=== PATIENT | male | born 1950 | race Caucasian/White ===

== ENCOUNTER 2019-01-11 09:20 | Outpatient (CLI) | payer BC, MEDICARE, OTHER ==
[~2019-01-11 09:20] MED LIST: Iopamidol 370 76% 100 ML VIAL ONE
--- NOTE | 2019-01-11 10:25 | CT ---
CT abdomen and pelvis with and without IV contrast. Oral contrast was not administered. Postcontrast images were obtained in the portal venous phase and delayed venous phase. INDICATIONS: Prostate cancer COMPARISON: None FINDINGS: Lung bases are clear Liver, spleen, and pancreas appear unremarkable. Stomach and duodenum appear unremarkable. Adrenal glands appear normal. Review of the noncontrast images reveal no evidence of urinary tract calculus. No hydronephrosis. Postcontrast images show no evidence of renal mass. There is equal function and enhancement bilateral ly. Urinary bladder mildly distended. Mild urinary bladder wall thickening. Prostate is enlarged. The prostate indents the floor the bladder. Collecting structures opacify and appear unremarkable on the delayed venous phase. Small bowel loops are normal caliber and exhibit normal fold pattern. Appendix is identified and appears unremarkable. Colon is unremarkable. Aorta is calcified. Aorta is normal caliber. No evidence of retroperitoneal or mesenteric adenopathy. No evidence of pelvic adenopathy. Subcutaneous tissues, abdominal wall, and muscular structures appear unremarkable. Osseous structures appear unremarkable. IMPRESSION: Prostatic hypertrophy. Mild urinary bladder wall thickening. No acute process.
== END 2019-01-11 09:21 | disposition home or self-care (01) ==
LOC: SCSCT 09:20
PROVIDERS: ATTEND Urology
DX: C43.9 Malignant melanoma of skin, unspecified (principal); C61 Malignant neoplasm of prostate; R97.20 Elevated prostate specific antigen [PSA]; N40.1 Benign prostatic hyperplasia with lower urinary tract symptoms; N40.2 Nodular prostate without lower urinary tract symptoms; N32.89 Other specified disorders of bladder
CPT/HCPCS: 74178; 81001; 82565; 87086; Q9967

== ENCOUNTER 2019-02-06 14:49 | Outpatient (CLI) | payer BC, MEDICARE, OTHER ==
[~2019-02-06 14:49] MED LIST changes: +Gadobenate Dimeglumine 529 MG/1 ML (20ML VIAL) ONE; -Iopamidol 370 76% 100 ML VIAL ONE
--- NOTE | 2019-02-06 16:38 | MRI ---
MRI Pelvis W WO Con History: Elevated PSA Comparison: None. Findings: Exam was reviewed at an independent 3-D workstation. Prostate: Prostate measures 5.3 x 4.5 x 4.9 cm for a volume of 61 mL. Peripheral zone: In the right peripheral zone apex from 7:00 - 8:00 is a focal area of markedly hyper intense signal on DWI and focal markedly hypointense signal on ADC map measuring 1.1 x 0.9 x 1.5 cm. There is capsular bulge and high likelihood of neurovascular bundle invasion. Prostatic capsule: Extra prostatic extension at 7:00-8:00 near the apex. Neurovascular bundle: High likelihood of invasion. Lymph nodes: No focal adenopathy. Small right external iliac lymph nodes retain normal fatty hilum. Urinary bladder: Not involved. Seminal vesicles: There is some layering debris within seminal vesicles. No malignant involvement. Bones: On the large [id number] T1 sequence there are no areas of loss of marrow signal to suggest osseous metastatic disease. Intrapelvic soft tissues: Normal Impression: 1. Prostatic volume of 61 mL. 2 PIRADS 5: Very high (clinically significant cancer highly likely) . There is capsular bulge with ex traprostatic extension along with neurovascular bundle invasion. This occurs at the right apex peripheral zone from 7:00 - 8:00. 3. No evidence for jey or osseous metastatic disease.
== END 2019-02-06 14:50 | disposition home or self-care (01) ==
LOC: TBSIIMAG 14:49
PROVIDERS: ATTEND Urology
DX: C43.9 Malignant melanoma of skin, unspecified (principal); R97.20 Elevated prostate specific antigen [PSA]; N42.9 Disorder of prostate, unspecified
CPT/HCPCS: 72197; 82565

== ENCOUNTER 2019-03-10 11:36 | Outpatient (CLI) | payer BC, MEDICARE, OTHER ==
--- NOTE | 2019-03-10 12:50 | RAD ---
PA AND LATERAL VIEWS CHEST: Date: 03/10/19 HISTORY: Preoperative evaluation. FINDINGS: The heart size is normal. The aorta is tortuous. The lungs are expanded without focal areas of consol idation, pneumothoraces, or pleural effusions. No acute osseous abnormalities are seen. IMPRESSION: No acute process. POS: ALINE
[2019-03-10 13:12] LABS: Hemoglobin 13.4 g/dL (14.0-18.0); Mean Corpuscular HGB CONC 31.7 g/dL (32.0-36.0); Mean Corpuscular Hemoglobin 27.5 pg (27.0-31.0); Mean Corpuscular Volume 86.7 fL (78.0-98.0); Platelet Count 155 thou/uL (130-400); RBC Distribution Width 12.5 % (11.5-14.5); Red Blood Cell (RBC) Count 4.86 mill/uL (4.70-6.10); White Blood Cell (WBC) Count 7.2 thou/uL (4.8-10.8)
[2019-03-10 13:20] LABS: INR-International Normal Ratio 0.9; Prothrombin Time 12.6 SEC (12.0-14.7)
[2019-03-10 13:32] LABS: Anion Gap 12 mmol/L (10-20); BUN (Urea Nitrogen) 27 mg/dL (8.4-25.7); Calc. Creatinine Clearance 0 mL/min (70-130); Carbon Dioxide 23 mmol/L (23-31); Chloride 109 mmol/L (98-107); Estimated GFR-MDRD 72; Glucose 82 mg/dL (80-115); Potassium 4.3 mmol/L (3.5-5.1); Sodium 140 mmol/L (136-145)
[2019-03-10 14:01] LABS: Bacteria/HPF None Seen HPF (None Seen); Bilirubin Negative (Negative); Blood, Urine Negative (Negative); Clarity Extra Turbid (Clear); Glucose, Urine (Dipstick) Normal (Negative); Leukocyte Negative Leu/uL (Negative); Mucous/LPF Rare LPF (<2+); Nitrite Negative (Negative); Protein, Urine (Dipstick) 30 mg/dL (Neg-Trace); Squamous Epithelial 0-3 HPF (0-3); Urobilinogen Normal mg/dL (Less than 2)
--- NOTE | 2019-03-13 16:50 | EKG ---
Test Reason : Blood Pressure : / mmHG Vent. Rate : 052 BPM Atrial Rate : 052 BPM P-R Int : 144 ms QRS Dur : 102 ms QT Int : 438 ms P-R-T Axes : 051 011 021 degrees QTc Int : 407 ms Sinus bradycardia Otherwise normal ECG Confirmed by NATALIYA YOUNG ([id number]) on 03/13/2019 4:50:29 PM Referred By: DEMI Confirmed By:NATALIYA YOUNG
== END 2019-03-10 11:37 | disposition home or self-care (01) ==
LOC: LABBT 11:36
PROVIDERS: ATTEND Urology
DX: Z01.818 Encounter for other preprocedural examination (principal); C61 Malignant neoplasm of prostate; C43.9 Malignant melanoma of skin, unspecified; N40.1 Benign prostatic hyperplasia with lower urinary tract symptoms; R97.20 Elevated prostate specific antigen [PSA]; I10 Essential (primary) hypertension; I25.810 Atherosclerosis of coronary artery bypass graft(s) without angina pectoris; K42.9 Umbilical hernia without obstruction or gangrene; N35.816 Other urethral stricture, male, overlapping sites
CPT/HCPCS: 71046; 80048; 81001; 85027; 85610; 85730; 87081; 87086; 93005; 93010

== ENCOUNTER 2019-03-22 06:01 | Day surgery (SDC) | payer BC, MEDICARE, OTHER ==
[2019-03-10 12:05] VITALS: BMI 31.5
[2019-03-22] MEDS ORDERED: Sodium Chloride 0.9% 100 ML ONE (06:28)
[2019-03-22] MEDS ORDERED: Levofloxacin 500 mg/D5W 100 ml Premix Bag ONE (06:28)
[2019-03-22] MEDS ORDERED: cefTRIAXone\\ROCEPHIN 2 GM VIAL ONE (06:28)
[2019-03-22] MEDS ORDERED: Fentanyl 100 MCG/2 ML VIAL ONE (07:04)
[2019-03-22] MEDS ORDERED: Phenazopyridine HCl 97.5 MG TABLET ONE (08:58)
[2019-03-22] MEDS ORDERED: Oxybutynin 5 MG TAB ONE (08:58)
--- NOTE | 2019-03-22 12:10 | OP ---
DATE OF PROCEDURE: 03/22/2019 PREOPERATIVE DIAGNOSES: 1. A 68-year-old male with clinical T1c, [place] score 3 + 3, 1/12 core positive prostate cancer with low-risk genomic testing. 2. Recent MRI demonstrating PI-RADS 5 lesion. 3. History of urethral stricture, status post dilatation. POSTOPERATIVE DIAGNOSES: 1. A 68-year-old male with clinical T1c, [place] score 3 + 3, 1/12 core positive prostate cancer with low-risk genomic testing. 2. Recent MRI demonstrating PI-RADS 5 lesion. 3. History of urethral stricture, status post dilatation. PROCEDURES PERFORMED: Flexible cystoscopy, 16-Cypriot 10 mL Cruz catheter placement, transrectal ultrasound volume study, standard 12 core plus extended core of fusion biopsy of region of interest x4. ANESTHESIA: LMA. COMPLICATIONS: None apparent. ESTIMATED BLOOD LOSS: Minimal. IV FLUIDS: 800 mL. SPECIMEN: Standard 12-core prostate biopsy, transrectal ultrasound of the prostate volume study, region of interest with 4 specimens obtained, MRI fusion biopsy INTRAOPERATIVE FINDINGS: 1. Flexible cystoscopy demonstrates moderately obstructing bilobar hyperplasia of the prostate as previous. 2. Resolution of his urethral stricture dilated in office on February 16. 3. Prostate volume study, 65 g. INDICATIONS FOR PROCEDURE AND HISTORY: Mr. El is a 68-year-old pleasant male, who was referred to me for elevated PSA. His HOWARD is grossly unremarkable and remains negative. He presented with a PSA of 7.01, it has decreased to 6.6. He underwent prostate biopsy demonstrating [place] score 3 + 3, 1/12 cores positive. Genetic Oncotype testing demonstrated GPS score of 26 and very low risk and therefore we were considering active surveillance. I did obtain a 3T-MRI for staging, which unfortunately demonstrated contradictory findings of PI-RADS 5 with extracapsular bulge, and likelihood of neurovascular invasion of the right peripheral apex with no focal lymphadenopathy. Due to conflicting results of genomics, an MRI staging, we discussed in long detail regarding proceeding with treatment versus restaging MRI fusion biopsy to obtain more specimen. He was seen by Radiation Oncology, who recommended fusion biopsy of the region of interest and he desired to proceed. Risks and complications of the procedure were reviewed with him in detail again including, but not limited to, bleeding, pain, infection, injury to adjacent organs, urosepsis, and clot retention. All questions were answered to his satisfaction. He desired to proceed. DESCRIPTION OF PROCEDURE: After an informed consent was signed, the patient was taken to the operating room, placed in a supine position. Broad-spectrum antibiotics were provided with bilateral EDER davide SCDs in place. A flexible cystoscopy was performed for staging, which demonstrated resolution of his previous urethral stricture. He did not require to be debilitated again and bilobar hyperplasia moderately obstructing again noted. Bladder was grossly unremarkable and I did pass a 16-Cypriot 10 mL Cruz catheter without significant issues and this was that attached to leg bag, gravity bag. We then placed the patient in a lateral decubitus position with all pressure points padded and protected at all times. We did perform a transrectal ultrasound volume study with a probe demonstrating 65 g prostate: Urethral length of 5.5, width of 5.4, height of 4.15. After volume assessment was then performed, we then used the MRI image to our ultrasound. Region of interest was aligned and we performed 4 targeted biopsies of the region of interest uneventfully. Subsequently, we performed our 12 standard core biopsy in a usual matter. He tolerated the procedure well and transported to the recovery room in stable condition. He will follow up with me next Wednesday to review pathology. He is discharged with ciprofloxacin for 7 days. Job ID: [id number] [facility]
== END 2019-03-22 10:49 | disposition home or self-care (01) ==
LOC: SDC 06:01
PROVIDERS: ATTEND Urology
PROC: 0T9B80Z Drainage of Bladder with Drainage Device, Via Natural or Artificial Opening Endoscopic (ICD-10-PCS; principal; 2019-03-22)
PROC: 0VB03ZX Excision of Prostate, Percutaneous Approach, Diagnostic (ICD-10-PCS; principal; 2019-03-22)
DX: N41.1 Chronic prostatitis (principal); N40.1 Benign prostatic hyperplasia with lower urinary tract symptoms; R35.0 Frequency of micturition; R35.1 Nocturia; E78.5 Hyperlipidemia, unspecified; I10 Essential (primary) hypertension; I25.10 Atherosclerotic heart disease of native coronary artery without angina pectoris; Z87.891 Personal history of nicotine dependence; Z79.899 Other long term (current) drug therapy
CPT/HCPCS: 88305; J0131; J0696; J1956; J3010; J3490

== ENCOUNTER 2019-05-31 08:55 | Outpatient (CLI) | payer BC, MEDICARE, OTHER ==
--- NOTE | 2019-05-31 12:13 | MRI ---
MRI OF PROSTATE WITHOUT AND WITH CONTRAST: Date: 05/31/19 COMPARISON: 02/06/19. HISTORY: Prostate cancer. Patient had a previous positive prostate biopsy followed by a negative pro state biopsy. TECHNIQUE: Multiplanar, multisequence MR images were obtained of the prostate without and with IV co ntrast. FINDINGS: There is moderate hypertrophy of the central gland consistent with BPH. There is a 9 mm area of low T 2 signal in the apex of the posterior prostate. This is stable to slightly smaller than on the prior examination. This area does not demonstrate restricted diffusion or low ADC signal. This lesion is mo st likely within the peripheral zone of the prostate. No other low T2 suspicious lesions are seen within the prostate. No restricted diffusion in the perip heral zone of prostate or low signal on ADC map in peripheral zone pf prostate seen. The neurovascular bundles appear intact. The seminal vesicles are intact. No pelvic adenopathy is see n. No marrow signal abnormality is present. IMPRESSION: There is a 9 mm focus of low T2 signal on the right prostate peripheral zone near the apex. This is s table in size. This does not demonstrate restricted diffusion or low signal on the ADC map. Therefore , this likely would not be of clinically significant cancer. PI-RADS Category 2 - Low likelihood that a clinically significant cancer is present. POS: RANGEL
== END 2019-05-31 08:56 | disposition home or self-care (01) ==
LOC: TBSIIMAG 08:55
PROVIDERS: ATTEND Urology
DX: C61 Malignant neoplasm of prostate (principal)
CPT/HCPCS: 72197; 82565

== ENCOUNTER 2020-07-26 13:28 | Outpatient (CLI) | payer MEDICARE, BC, OTHER ==
[2020-07-26 14:19] LABS: Hemoglobin 13.9 g/dL (14.0-18.0); Mean Corpuscular HGB CONC 32.3 G/DL (32.0-36.0); Mean Corpuscular Hemoglobin 27.6 PG (27.0-33.0); Mean Corpuscular Volume 85.3 fl (80.0-100.0); Mean Platelet Volume 11.2 fl (7.4-10.4); Platelet Count 154 10x3/uL (130-400); RBC Distribution Width 13.9 % (11.5-14.5); Red Blood Cell (RBC) Count 5.04 10x6/uL (4.40-5.80); White Blood Cell (WBC) Count 6.5 10x3/uL (4.5-11.0)
--- NOTE | 2020-07-26 14:31 | RAD ---
EXAM: Chest 2 views: HISTORY: Preoperative radiograph COMPARISON: 03/10/2019 FINDINGS: There is a normal-sized cardiomediastinal silhouette. There is no evidence of consolidation, mass, or pleural effusion. Degenerative changes are seen in the spine. IMPRESSION: No evidence of acute cardiopulmonary disease
[2020-07-26 14:40] LABS: Prothrombin Time 10.6 sec (9.5-12.1)
[2020-07-26 15:14] LABS: Anion Gap 15 mmol/L (10-20); BUN (Urea Nitrogen) 21 mg/dL (8.4-25.7); Calc. Creatinine Clearance 0 mL/min (70-130); Calcium 8.6 mg/dL (7.8-10.44); Carbon Dioxide 22 mmol/L (23-31); Chloride 109 mmol/L (98-107); Estimated GFR-MDRD 65; Glucose 102 mg/dL (80-115); Potassium 4.3 mmol/L (3.5-5.1); Sodium 142 mmol/L (136-145)
[2020-07-27 11:00] LABS: SARS-CoV-2 MS2 Positive; SARS-CoV-2 N Gene Negative; SARS-CoV-2 S Gene Negative; SARS-CoV-2 by NAA Not Detected (NotDetected); SARS-CoV-2 orf1ab Negative
== END 2020-07-26 13:29 | disposition home or self-care (01) ==
LOC: LABBT 13:28
PROVIDERS: ATTEND Urology
DX: Z01.818 Encounter for other preprocedural examination (principal); Z01.812 Encounter for preprocedural laboratory examination; Z20.828 Contact with and (suspected) exposure to other viral communicable diseases; C61 Malignant neoplasm of prostate; C43.9 Malignant melanoma of skin, unspecified; N40.2 Nodular prostate without lower urinary tract symptoms; R97.20 Elevated prostate specific antigen [PSA]; N40.1 Benign prostatic hyperplasia with lower urinary tract symptoms; I10 Essential (primary) hypertension; R35.1 Nocturia; I25.810 Atherosclerosis of coronary artery bypass graft(s) without angina pectoris; K42.9 Umbilical hernia without obstruction or gangrene; N35.816 Other urethral stricture, male, overlapping sites; R31.29 Other microscopic hematuria
CPT/HCPCS: 71046; 80048; 85027; 85610; 85730; U0003; 87635

== ENCOUNTER 2020-07-31 06:00 | Day surgery (SDC) | payer BC, MEDICARE, OTHER ==
[2020-07-30 10:57] VITALS: BMI 32.1
[2020-07-31] MEDS ORDERED: Levofloxacin 500 mg/D5W 100 ml Premix Bag ONE (06:32)
[2020-07-31] MEDS ORDERED: Sodium Chloride 0.9% 100 ML ONE (06:32)
[2020-07-31] MEDS ORDERED: cefTRIAXone\\ROCEPHIN 2 GM VIAL ONE (06:32)
[2020-07-31] MEDS ORDERED: Fentanyl 100 MCG/2 ML VIAL ONE (06:37)
[2020-07-31] MEDS ORDERED: Propofol 500 MG/50 ML VIAL ONE (06:37)
[2020-07-31] MEDS ORDERED: Midazolam HCl 2 mg/2 ml Vial ONE (06:37)
[2020-07-31] MEDS ORDERED: Phenazopyridine HCl 100 MG TAB ONE ×2 (08:19)
--- NOTE | 2020-07-31 08:39 | OP ---
DATE OF PROCEDURE: 07/31/2020 PREOPERATIVE DIAGNOSES: 1. A 69-year-old male with history of clinical T1c prostate cancer, [place] score 3+3, Oncotype GPS score of very low risk, GPS score 26. 2. History of benign prostatic hypertrophy. 3. History of urethral stricture, proximal penile/bulbar 16-Yemeni caliber. POSTOPERATIVE DIAGNOSES: 1. A 70-year-old male with history of clinical T1c prostate cancer, [place] score 3+3, Oncotype GPS score of very low risk, GPS score 26. 2. History of benign prostatic hypertrophy. 3. History of urethral stricture, proximal penile/bulbar 16-Yemeni caliber. PROCEDURES PERFORMED: Cystoscopy, transrectal ultrasound, volume study, 12-core needle prostate biopsy, MRI fusion biopsy of region of interest. ANESTHESIA: TIVA. INTRAOPERATIVE FINDINGS: 1. Cystoscopy, no gross obstructing urethral stricture. 2. Bilobar hyperplasia of the prostate, [id number] obstruction with no median lobe. 3. Diffuse trabeculation. 4. UOs about 2 to 3 mm proximal to the bladder neck. 5. Prostate volume study 59 g. SPECIMENS: 1. 12-core standard prostate biopsy. 2. Region of interest biopsy, 4 cores obtained from JAM. ESTIMATED BLOOD LOSS: Minimal. COMPLICATIONS: None apparent. INDICATIONS FOR PROCEDURE AND HISTORY: Mr. El is a pleasant 70-year-old male with history of clinical T1c prostate cancer, [place] score 3+3, 1/12 cores positive with low GPS score. He presents today for surveillance prostate biopsy, MRI staging obtained demonstrating PIRAD 4 lesion at 11 mm right peripheral near the apex. Presents today for the above procedure. Risks and complications of the procedure have been discussed with him in detail including, but not limited to: Bleeding, pain, infection, injury to adjacent organs, urosepsis, possible secondary procedure secondary to blood per rectum or gross hematuria, sepsis. All questions answered to his satisfaction. He desired to proceed without reservation. DESCRIPTION OF PROCEDURE: After an informed consent was signed, the patient was taken to the operating room and placed in a dorsal lithotomy position with the genital area prepped and draped in the usual surgical sterile fashion. The patient was placed in a supine position, and a 14-Yemeni flexible cystoscope was passed after sterile prep. This demonstrated no gross obstructing urethral stricture. Again noted was bilobar hyperplasia of the prostate, moderate to severe obstruction with no evidence of median lobe. The bladder demonstrated trabeculation consistent with chronic outlet obstruction, UOs about 2 to 3 mm proximal to the bladder neck. At this time, we placed a 16-Yemeni Cruz catheter to gravity which passed without significant issues. The patient was placed in lateral decubitus position, and MRI fusion ultrasound-guided biopsy performed. We formatted the MRI images to fuse our ultrasound, region of interest was found, and after the probe was placed, we obtained 4 cores from the region of interest. Subsequently, we then transitioned to a standard ultrasound and obtained a volume study. Prostate volume study demonstrated 59 g: Urethral length of 5.6, width of 5.0, height of 3.99. 12- core needle prostate biopsy was performed uneventfully. Cruz catheter removed demonstrating no evidence of gross hematuria. He did have some seepage per rectum consistent with the recent biopsy. He tolerated the procedure well and transported to the recovery room in stable condition. He will be discharged with Levaquin x3 days and will follow up with me to review pathology. Patient postoperatively was having difficulty voiding. 800 cc of PVR therefore indwelling Cruz catheter placed patient discharged with Cruz catheter patient voiding trial. Patient advised to increase his tamsulosin to twice daily Job ID: [id number] [facility]
[2020-07-31] MEDS ORDERED: ePHEDrine 50 MG/ML VIAL ONE (09:56)
== END 2020-07-31 14:10 | disposition home or self-care (01) ==
LOC: SDC 06:00
PROVIDERS: ATTEND Urology
PROC: 0VB03ZX Excision of Prostate, Percutaneous Approach, Diagnostic (ICD-10-PCS; principal; 2020-07-31)
DX: C61 Malignant neoplasm of prostate (principal); N40.1 Benign prostatic hyperplasia with lower urinary tract symptoms; R35.1 Nocturia; E78.5 Hyperlipidemia, unspecified; I10 Essential (primary) hypertension; I25.810 Atherosclerosis of coronary artery bypass graft(s) without angina pectoris; R31.29 Other microscopic hematuria; Z79.82 Long term (current) use of aspirin; Z79.899 Other long term (current) drug therapy; Z87.891 Personal history of nicotine dependence
CPT/HCPCS: 88305; J0696; J1956; J2250; J2704; J3010; J3490

== ENCOUNTER 2021-06-18 09:42 | Outpatient (CLI) | payer BC, MEDICARE, OTHER ==
[2021-06-18] MEDS ORDERED: Magnevist 469MG/ML 20 ML VIAL ONE (10:43)
== END 2021-06-18 09:43 | disposition home or self-care (01) ==
LOC: TBSIIMAG 09:42
PROVIDERS: ATTEND Urology
DX: C61 Malignant neoplasm of prostate (principal)
CPT/HCPCS: 72197; 82565; A9579

== ENCOUNTER 2024-05-16 12:30 | Outpatient (CLI) | payer BC, MEDICARE, OTHER | END 2024-05-16 12:31 | disposition home or self-care (01) | LOC: PET 12:30 | PROVIDERS: ATTEND Urology | DX: C61 Malignant neoplasm of prostate (principal) | CPT/HCPCS: 78815; A9552; A9595 ==

== ENCOUNTER 2024-06-21 16:12 | Outpatient (CLI) | payer BC, MEDICARE ==
[2024-06-21 17:14] LABS: #Basophils 0.04 10x3/uL (0.0-0.2); %Basophils 0.6 % (0.0-1.0); %Eosinophils 1.4 % (0.0-10.0); %Lymphocytes 27.9 % (21.0-51.0); %Monocytes 9.3 % (0.0-10.0); %Neutrophils 60.5 % (42.0-75.0); Hematocrit 42.5 % (42.0-52.0); Hemoglobin 13.5 g/dL (14.0-18.0); Mean Corpuscular HGB CONC 31.8 g/dL (32.0-36.0); Mean Corpuscular Hemoglobin 27.9 pg (27.0-31.0); Mean Corpuscular Volume 87.8 fL (78.0-98.0); Mean Platelet Volume 11.2 fL (7.4-10.4); Platelet Count 170 10x3/uL (130-400); RBC Distribution Width 13.1 % (11.5-14.5); Red Blood Cell (RBC) Count 4.84 mill/uL (4.70-6.10)
[2024-06-21 17:24] LABS: Bacteria/HPF None Seen HPF (None Seen); Bilirubin Negative (Negative); Blood, Urine Negative (Negative); Glucose, Urine (Dipstick) Normal (Negative); Ketone, Urine Negative (Negative); Leukocyte Negative Leu/uL (Negative); Nitrite Negative (Negative); Protein, Urine (Dipstick) 20 mg/dL (Neg-Trace); RBC/HPF 0-3 HPF (0-3); Specific Gravity, Urine 1.028 (1.002-1.036); Squamous Epithelial 0-3 HPF (0-3); WBC/HPF 0-3 HPF (0-3)
[2024-06-21 17:25] LABS: Clarity Hazy (Clear)
[2024-06-21 17:28] LABS: Anion Gap 13 mmol/L (10-20); BUN (Urea Nitrogen) 27 mg/dL (8.4-25.7); Calc. Creatinine Clearance 0 mL/min (70-130); Carbon Dioxide 23 mmol/L (23-31); Chloride 109 mmol/L (98-107); Estimated GFR 55; Glucose 90 mg/dL (83-110); Potassium 3.8 mmol/L (3.5-5.1); Sodium 141 mmol/L (136-145)
[2024-06-21 17:32] LABS: INR-International Normal Ratio 1.1; Prothrombin Time 13.9 sec (12.0-14.7)
[2024-06-21 17:33] LABS: PTT 30.3 sec (22.9-36.1)
== END 2024-06-21 16:13 | disposition home or self-care (01) ==
LOC: LABBT 16:12
PROVIDERS: ATTEND Urology
DX: Z01.818 Encounter for other preprocedural examination (principal); C61 Malignant neoplasm of prostate; C43.9 Malignant melanoma of skin, unspecified; R97.20 Elevated prostate specific antigen [PSA]; N40.1 Benign prostatic hyperplasia with lower urinary tract symptoms; I10 Essential (primary) hypertension; R35.1 Nocturia; I25.810 Atherosclerosis of coronary artery bypass graft(s) without angina pectoris; K42.9 Umbilical hernia without obstruction or gangrene
CPT/HCPCS: 80048; 81001; 85025; 85610; 85730; 86850; 86900; 86901; 87086; 93005; 93010

== ENCOUNTER 2024-07-05 07:13 | Observation (INO) | payer BC, MEDICARE ==
[2024-06-21 16:36] VITALS: BMI 32.4
[2024-07-05] MEDS ORDERED: Midazolam HCl 2 mg/2 ml Vial ONE (10:03)
[2024-07-05] MEDS ORDERED: LevoFLOXacin D5W 500 mg (100 mL) BAG ONE (10:04)
[2024-07-05] MEDS ORDERED: Rocuronium Bromide 10 MG/ML (10ML VIAL) ONE (10:18)
[2024-07-05] MEDS ORDERED: PROPOFOL 20 ML ONE (10:18)
[2024-07-05] MEDS ORDERED: fentaNYL PF 100 MCG/2 ML SYRINGE ONE (10:18)
[2024-07-05] MEDS ORDERED: SUGAMMADEX SODIUM 200 MG/2 ML VIAL ONE (10:18)
[2024-07-05] MEDS ORDERED: Lidocaine 1% PF 5 ML VIAL ONE (10:18)
[2024-07-05] MEDS ORDERED: Dexamethasone 4 mg/ml Vial ONE (10:18)
[2024-07-05] MEDS ORDERED: Ondansetron PF 4 MG/2 ML Vial ONE (10:18)
[2024-07-05] MEDS ORDERED: ePHEDrine Sulfate 50 MG/10 ML VIAL ONE (11:18)
[2024-07-05] MEDS ORDERED: Mag-Al 1200 mg/1200 mg/30 ML UDCUP PO PRN (12:53)
[2024-07-05] MEDS ORDERED: hydrALAZINE 20 MG/ML VIAL SLOW IVP PRN (12:53)
[2024-07-05] MEDS ORDERED: HYDROcodone/Acetaminophen 5/325 mg Tablet PO PRN ×2 (12:53)
[2024-07-05] MEDS ORDERED: Zolpidem Tartrate 5 MG TAB PO PRN (12:53)
[2024-07-05] MEDS ORDERED: diphenhydrAMINE 50 MG/ML VIAL IVP PRN (12:53)
[2024-07-05] MEDS ORDERED: Morphine 2 MG/ML VIAL SLOW IVP PRN (12:53)
[2024-07-05] MEDS ORDERED: Acetaminophen 500 MG TAB PO PRN (12:53)
[2024-07-05] MEDS ORDERED: Ondansetron PF 4 MG/2 ML Vial IVP PRN (12:56)
[2024-07-05] MEDS ORDERED: Hyoscyamine SL 0.125 MG TAB ONE (13:23)
[2024-07-05 15:11] LABS: #Basophils Less than 0.03 10x3/uL (0.0-0.2); #Eosinophils Less than 0.03 10x3/uL (0.0-0.7); %Basophils 0.3 % (0.0-1.0); %Eosinophils 0.3 % (0.0-10.0); %Lymphocytes 12.6 % (21.0-51.0); %Monocytes 2.2 % (0.0-10.0); %Neutrophils 84.3 % (42.0-75.0); Hemoglobin 13.7 g/dL (14.0-18.0); Mean Corpuscular HGB CONC 32.6 g/dL (32.0-36.0); Mean Corpuscular Volume 85.7 fL (78.0-98.0); Mean Platelet Volume 11.3 fL (7.4-10.4); Platelet Count 137 10x3/uL (130-400); RBC Distribution Width 12.7 % (11.5-14.5)
[2024-07-05 15:37] LABS: Anion Gap 13 mmol/L (10-20); BUN (Urea Nitrogen) 17 mg/dL (8.4-25.7); Calc. Creatinine Clearance 91 mL/min (70-130); Calcium 8.8 mg/dL (7.8-10.44); Carbon Dioxide 24 mmol/L (23-31); Chloride 109 mmol/L (98-107); Estimated GFR 76; Glucose 124 mg/dL (83-110); Potassium 4.2 mmol/L (3.5-5.1); Sodium 142 mmol/L (136-145)
[2024-07-05] MEDS: Hyoscyamine SL 0.125 MG TAB SL SCH (18:09)
[2024-07-05] MEDS: Sodium Chloride 0.9% 1,000 ML IV SCH (18:10)
[2024-07-05] MEDS: Phenazopyridine HCl 100 MG TAB PO SCH (19:07)
[2024-07-05] MEDS ORDERED: Rosuvastatin 10 MG TAB PO SCH (21:00)
[2024-07-05] MEDS: Famotidine/PF 20 mg/2ml Vial SLOW IVP SCH (21:27)
[2024-07-05] MEDS: Docusate 100 MG CAP PO SCH (21:27)
[2024-07-05] MEDS: Pantoprazole DR 40 MG TAB PO SCH (21:28)
[2024-07-05] MEDS: Dutasteride 0.5 MG CAP PO SCH (21:28)
[2024-07-05] MEDS: Tamsulosin HCl 0.4 MG CAP PO SCH (21:28)
[2024-07-05] MEDS: Ezetimibe 10 MG TAB PO SCH (21:28)
[2024-07-05] MEDS: Rosuvastatin 20 MG TAB PO SCH (21:28)
[2024-07-06] VITALS: TEMP 98.1
[2024-07-06] MEDS: cefTRIAXone\\ROCEPHIN 1 GM in Sodium Chloride 0.9% 100 ML IVPB SCH (04:25)
[2024-07-06 05:27] LABS: #Basophils Less than 0.03 10x3/uL (0.0-0.2); #Eosinophils Less than 0.03 10x3/uL (0.0-0.7); %Monocytes 4.9 % (0.0-10.0); %Neutrophils 86.6 % (42.0-75.0); Hematocrit 40.5 % (42.0-52.0); Mean Corpuscular HGB CONC 32.1 g/dL (32.0-36.0); Mean Corpuscular Hemoglobin 27.8 pg (27.0-31.0); Mean Corpuscular Volume 86.5 fL (78.0-98.0); Mean Platelet Volume 11.6 fL (7.4-10.4); Platelet Count 150 10x3/uL (130-400); RBC Distribution Width 12.6 % (11.5-14.5); Red Blood Cell (RBC) Count 4.68 mill/uL (4.70-6.10)
[2024-07-06 06:05] LABS: Anion Gap 14 mmol/L (10-20); BUN (Urea Nitrogen) 17 mg/dL (8.4-25.7); Calc. Creatinine Clearance 95 mL/min (70-130); Calcium 8.5 mg/dL (7.8-10.44); Carbon Dioxide 18 mmol/L (23-31); Chloride 110 mmol/L (98-107); Estimated GFR 80; Glucose 178 mg/dL (83-110); Sodium 138 mmol/L (136-145)
[2024-07-06 07:47] VITALS: BP 156/68
[2024-07-06] MEDS: Polyethylene Glycol 3350 17 GM Packet PO SCH (09:00)
[2024-07-06] MEDS: Amlodipine 5 MG TAB PO SCH (09:00)
[2024-07-06] MEDS: Losartan 25 MG TAB PO SCH (09:01)
[2024-07-06] MEDS: Isosorbide Mononitrate 30 MG ER.TAB PO SCH (09:01)
== END 2024-07-06 10:58 | disposition home or self-care (01) ==
LOC: SDC 07:13 → SURG A 12:53
PROVIDERS: ADMIT Urology; ATTEND Urology
PROC: 0VT08ZZ Resection of Prostate, Via Natural or Artificial Opening Endoscopic (ICD-10-PCS; principal; 2024-07-06)
DX: C61 Malignant neoplasm of prostate (principal); N35.816 Other urethral stricture, male, overlapping sites; N40.1 Benign prostatic hyperplasia with lower urinary tract symptoms; R35.1 Nocturia; I10 Essential (primary) hypertension; I25.10 Atherosclerotic heart disease of native coronary artery without angina pectoris; C43.9 Malignant melanoma of skin, unspecified; C44.311 Basal cell carcinoma of skin of nose; E78.5 Hyperlipidemia, unspecified; E66.9 Obesity, unspecified; J45.909 Unspecified asthma, uncomplicated; K42.9 Umbilical hernia without obstruction or gangrene; K21.9 Gastro-esophageal reflux disease without esophagitis; R97.20 Elevated prostate specific antigen [PSA]; Z87.891 Personal history of nicotine dependence; Z68.32 Body mass index [BMI] 32.0-32.9, adult; Z79.899 Other long term (current) drug therapy
CPT/HCPCS: 36415; 80048; 85025; 86850; 86900; 86901; 88305; A4333; J0696; J1100; J1956; J2250; J2405; J2704; J3490; J7030